=== PATIENT | female | born 1940 | race Caucasian/White ===

== ENCOUNTER → 2017-08-07 | Emergency (ER) | payer OTHER ==
[~2017-08-07] VITALS: Ht 139.7 cm; Wt 54.0 kg
[~2017-08-07] MED LIST: ASA81 MG PO; COZAAR25 MG; ENALAPRIL MALEA10 MG NGT; MEDROL4 MG PO; NAPROSYN125 MG/5 M PO; VITAMIN B-1000 MCG/2 IM; VITAMIN B-121000 MC2 SL
== END | disposition home or self-care (01) ==
LOC: ER 19:31
DX: M94.0 Chondrocostal junction syndrome [Tietze] (principal); R07.89 Other chest pain

== ENCOUNTER 2017-10-16 02:28 | Emergency (ER) | payer OTHER ==
[~2017-10-16] VITALS: Ht 149.9 cm; Wt 59.4 kg
[2017-10-16] MEDS ORDERED: DICLOFENAC POTA50 MG PO (06:52)
[2017-10-16] MEDS ORDERED: BACTRIM DS TAB1 EACH PO (06:52)
== END 2017-10-16 07:10 | disposition home or self-care (01) ==
LOC: ER 02:28 → EDBD 02:30 → CPU-OBS 02:30 → ER 02:30
DX: M94.0 Chondrocostal junction syndrome [Tietze] (principal); R07.89 Other chest pain

== ENCOUNTER 2018-01-11 10:15 | Outpatient (CLI) | payer OTHER ==
[~2018-01-11 10:15] MED LIST changes: +BACTRIM DS TAB1 EACH PO; +DICLOFENAC POTA50 MG PO
== END 2018-01-11 10:20 | disposition home or self-care (01) ==
LOC: LAB 10:15
DX: D50.0 Iron deficiency anemia secondary to blood loss (chronic) (principal); I11.0 Hypertensive heart disease with heart failure; R19.5 Other fecal abnormalities; E78.00 Pure hypercholesterolemia, unspecified; E03.0 Congenital hypothyroidism with diffuse goiter; N39.0 Urinary tract infection, site not specified; D69.6 Thrombocytopenia, unspecified

== ENCOUNTER 2018-03-28 12:23 | Outpatient (CLI) | payer OTHER | END 2018-03-28 13:00 | disposition home or self-care (01) | LOC: NUCLEAR 12:23 | DX: I73.9 Peripheral vascular disease, unspecified (principal); I87.2 Venous insufficiency (chronic) (peripheral) ==

== ENCOUNTER → 2018-11-14 12:09 | Outpatient (CLI) | payer OTHER | END | disposition home or self-care (01) | LOC: LAB 12:09 → EDBD 12:09 | DX: D69.49 Other primary thrombocytopenia (principal) ==

== ENCOUNTER 2018-11-18 08:09 | Outpatient (CLI) | payer OTHER | END 2018-11-18 08:15 | disposition home or self-care (01) | LOC: LAB 08:09 | DX: D69.59 Other secondary thrombocytopenia (principal); D51.3 Other dietary vitamin B12 deficiency anemia; D51.8 Other vitamin B12 deficiency anemias; K76.89 Other specified diseases of liver; K70.9 Alcoholic liver disease, unspecified; I10 Essential (primary) hypertension; D50.8 Other iron deficiency anemias; D50.0 Iron deficiency anemia secondary to blood loss (chronic); D51.1 Vitamin B12 deficiency anemia due to selective vitamin B12 malabsorption with proteinuria ==

== ENCOUNTER 2019-05-08 11:23 | Outpatient (CLI) | payer OTHER | END 2019-05-08 13:23 | disposition home or self-care (01) | LOC: LAB 11:23 | DX: D69.8 Other specified hemorrhagic conditions (principal) ==

== ENCOUNTER 2019-05-08 16:11 | Outpatient (CLI) | payer OTHER | END 2019-05-08 19:00 | disposition home or self-care (01) | LOC: LAB 16:11 | DX: B96.81 Helicobacter pylori [H. pylori] as the cause of diseases classified elsewhere (principal) ==

== ENCOUNTER → 2019-12-20 | Outpatient (CLI) | payer OTHER | END | disposition home or self-care (01) | LOC: TOM 10:15 | DX: M54.2 Cervicalgia (principal); G45.8 Other transient cerebral ischemic attacks and related syndromes ==

== ENCOUNTER → 2020-10-13 | Outpatient (CLI) | payer OTHER | END | disposition home or self-care (01) | LOC: PPH VACUNA 09:48 → MAMO-SONO 10-21 07:35 | PROVIDERS: ATTEND Emergency Medicine Pediatric Emergency Medicine | DX: Z23 Encounter for immunization (principal) ==

== ENCOUNTER → 2020-11-04 | Outpatient (CLI) | payer OTHER | END | disposition home or self-care (01) | LOC: PPH VACUNA | PROVIDERS: ATTEND Emergency Medicine Pediatric Emergency Medicine | DX: Z23 Encounter for immunization (principal) ==

== ENCOUNTER → 2020-12-12 | Outpatient (CLI) | payer OTHER | END | disposition home or self-care (01) | LOC: MAMO-SONO 09:01 | PROVIDERS: ATTEND Surgery | DX: Z12.31 Encounter for screening mammogram for malignant neoplasm of breast (principal); Z87.898 Personal history of other specified conditions; N60.11 Diffuse cystic mastopathy of right breast; N60.12 Diffuse cystic mastopathy of left breast ==

== ENCOUNTER 2022-04-01 12:27 | Outpatient (CLI) | payer OTHER | END 2022-04-01 12:33 | disposition home or self-care (01) | LOC: RAD 12:27 | PROVIDERS: ATTEND Internal Medicine | DX: J44.1 Chronic obstructive pulmonary disease with (acute) exacerbation (principal) ==

== ENCOUNTER 2022-04-30 13:12 | Outpatient (CLI) | payer OTHER | END 2022-04-30 13:15 | disposition home or self-care (01) | LOC: TOM 13:12 | PROVIDERS: ATTEND Internal Medicine | DX: J43.9 Emphysema, unspecified (principal) ==

== ENCOUNTER 2022-04-30 14:00 | Outpatient (CLI) | payer OTHER | END 2022-04-30 14:10 | disposition home or self-care (01) | LOC: PPH VACUNA 14:00 | PROVIDERS: ATTEND Emergency Medicine Pediatric Emergency Medicine | DX: Z23 Encounter for immunization (principal) ==

== ENCOUNTER 2022-07-15 08:41 | Outpatient (CLI) | payer OTHER | END 2022-07-15 08:42 | disposition home or self-care (01) | LOC: NUCLEAR 08:41 | PROVIDERS: ATTEND Internal Medicine Pulmonary Disease | DX: J84.112 Idiopathic pulmonary fibrosis (principal); R06.02 Shortness of breath ==

== ENCOUNTER 2022-09-13 07:24 | Outpatient (CLI) | payer OTHER | END 2022-09-13 07:30 | disposition home or self-care (01) | LOC: LAB 07:24 | PROVIDERS: ATTEND Internal Medicine | DX: D64.9 Anemia, unspecified (principal); E11.9 Type 2 diabetes mellitus without complications; E78.00 Pure hypercholesterolemia, unspecified; N39.0 Urinary tract infection, site not specified; E03.8 Other specified hypothyroidism; R19.5 Other fecal abnormalities; Z12.11 Encounter for screening for malignant neoplasm of colon; E55.9 Vitamin D deficiency, unspecified; D69.59 Other secondary thrombocytopenia ==

== ENCOUNTER 2022-09-13 09:02 | Outpatient (CLI) | payer OTHER | END 2022-09-13 09:08 | disposition home or self-care (01) | LOC: TOM 09:02 | PROVIDERS: ATTEND Internal Medicine Hematology & Oncology | DX: D69.59 Other secondary thrombocytopenia (principal); D51.3 Other dietary vitamin B12 deficiency anemia; D51.8 Other vitamin B12 deficiency anemias; K76.89 Other specified diseases of liver; K70.9 Alcoholic liver disease, unspecified; I10 Essential (primary) hypertension | CPT/HCPCS: 71260; 74177; Q9965 ==

== ENCOUNTER → 2022-09-17 09:13 | Outpatient (CLI) | payer OTHER | END | disposition home or self-care (01) | LOC: LAB 09:13 | PROVIDERS: ATTEND Internal Medicine Hematology & Oncology | DX: D50.8 Other iron deficiency anemias (principal); I10 Essential (primary) hypertension; R74.02 Elevation of levels of lactic acid dehydrogenase [LDH]; K76.89 Other specified diseases of liver; C50.919 Malignant neoplasm of unspecified site of unspecified female breast; R97.8 Other abnormal tumor markers; R97.1 Elevated cancer antigen 125 [CA 125] ==

== ENCOUNTER 2022-09-27 09:02 | Outpatient (CLI) | payer OTHER | END 2022-09-27 09:10 | disposition home or self-care (01) | LOC: MRI 09:02 | PROVIDERS: ATTEND Internal Medicine Hematology & Oncology | DX: D69.59 Other secondary thrombocytopenia (principal); D51.3 Other dietary vitamin B12 deficiency anemia; D51.8 Other vitamin B12 deficiency anemias; K76.89 Other specified diseases of liver; K70.9 Alcoholic liver disease, unspecified; I10 Essential (primary) hypertension | CPT/HCPCS: 74183; Q9965; 74182 ==